=== PATIENT | female | born 1965 | race Caucasian/White ===

== ENCOUNTER 2019-04-04 17:10 | Emergency (ER) | payer BC, OTHER ==
[2019-04-04] MEDS ORDERED: Acetaminophen/HYDROcodone 325-10 MG Tab PO ONE (21:31)
--- NOTE | 2019-04-04 21:37 | EDM.PDOC ---
ED HPI GENERAL MEDICAL PROBLEM - General Chief Complaint: Lower Extremity Injury/Pain Stated Complaint: INJURED RT FOOT AT WORK [id number] Time Seen by Provider: 04/04/19 21:32 Source of Information: Reports: Patient History Limitations: Reports: No Limitations - History of Present Illness INITIAL COMMENTS - FREE TEXT/NARRATIVE: been walking alot today during school field trip and developed right foot pain. denies trauma Right Anterior Foot Pain Score (Numeric/FACES): 5 - Related Data Allergies Allergy/AdvReac Type Severity Reaction Status Date / Time No Known Allergies Allergy Verified 04/04/19 18:14 Home Meds: Home Meds . [No Known Home Meds] 04/04/19 [History] Past Medical History - Past Surgical History Musculoskeletal Surgical History: Reports: Arthroscopic Knee, Other (See Below) Other Musculoskeletal Surgeries/Procedures:: hx of surgery to bilateral thumbs, hx of surgery to back for herniated disc. Social & Family History - Family History Family Medical History: Noncontributory - Tobacco Use Smoking Status *Q: Never Smoker Second Hand Smoke Exposure: No - Caffeine Use Caffeine Use: Reports: Coffee - Recreational Drug Use Recreational Drug Use: No Review of Systems - Review of Systems Review Of Systems: ROS reveals no pertinent complaints other than HPI. 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 edge, no gross D/D, NV wnl , gait limited to pain) Neurological: Alert, Oriented, Normal Cognition, No Motor/Sensory Deficits Psychiatric: Normal Affect, Normal Mood Skin Exam: Warm, Dry, Normal Color Lymphatic: No Adenopathy Course - Vital Signs Last Recorded V/S: Last Vital Signs Temp 36.6 C 04/04/19 18:10 Pulse 84 04/04/19 18:10 Resp 14 04/04/19 18:10 BP 148/69 H 04/04/19 18:10 Pulse Ox 100 04/04/19 18:10 - Orders/Labs/Meds Orders: Active Orders 24 hr Category Date Time Status Acetaminophen/HYDROcodone [Ackley 325-10 MG] Med 04/04/19 21:31 Once 1 tab PO ONETIME ONE Medication Orders Hydrocodone Bitart/Acetaminophen (Ackley 325-10 Mg) 1 tab PO ONETIME ONE Stop: 04/04/19 21:32 Meds: Medications Generic Name Dose Route Start Last Admin Trade Name Jacob PRN Reason Stop Dose Admin Hydrocodone Bitart/Acetaminophen 1 tab 04/04/19 21:31 Ackley 325-10 Mg PO 04/04/19 21:32 ONETIME ONE Departure - Departure Time of Disposition: 21:34 Disposition: Home, Self-Care 01 Condition: Good Clinical Impression: Osteoarthritis of foot, right Qualifiers: Osteoarthritis type: unspecified Qualified Code(s): M19.071 - Primary osteoarthritis, right ankle and foot - Discharge Information Instructions: What You Need to Know About Osteoarthritis Additional Instructions: 1) elevate foot as much as possible next 48 hours 2) try ice or heat to sore areas 3) use crutches 4) see clinic Sunday for MRI SCAN - My Orders Last 24 Hours: My Active Orders 04/04/19 21:31 Acetaminophen/HYDROcodone [Ackley 325-10 MG] 1 tab PO ONETIME ONE - Assessment/Plan Last 24 Hours: My Active Orders 04/04/19 21:31 Acetaminophen/HYDROcodone [Ackley 325-10 MG] 1 tab PO ONETIME ONE
== END 2019-04-04 21:52 | disposition home or self-care (01) ==
LOC: DL.ED 17:10
DX: M19.071 Primary osteoarthritis, right ankle and foot (principal)
CPT/HCPCS: 73630; 99283; A9270

== ENCOUNTER 2020-05-13 07:58 | Day surgery (SDC) | payer BC ==
[~2020-05-13 07:58] MED LIST: Lactated Ringers 1,000 ML IV SCH; Sodium Chloride 0.9% 10 ML Syringe FLUSH PRN; ceFAZolin 1 GM in Premix Bag 1 BAG IV ONE
[2020-05-13] MEDS ORDERED: Midazolam 1 MG/ML 2 ML SDV IV ONE (07:59)
[2020-05-13] MEDS ORDERED: Propofol 200 MG/20 ML SDV IV ONE (07:59)
[2020-05-13] MEDS ORDERED: Dexamethasone 4 MG/ML SDV IV ONE (07:59)
[2020-05-13] MEDS ORDERED: Ondansetron 4 MG/2 ML SDV IV ONE (07:59)
[2020-05-13] MEDS ORDERED: Ketorolac 30 MG/ML SDV IVPUSH ONE (07:59)
[2020-05-13] MEDS ORDERED: Lidocaine 1% 30 ML SDV INJECT ONE ×3 (07:59→12:33)
[2020-05-13] MEDS ORDERED: Bupivacaine 0.5% 30 ML SDV INJECT ONE ×3 (07:59→12:33)
[2020-05-13] MEDS ORDERED: fentaNYL 100 MCG/2 ML SDV IV ONE (07:59)
[2020-05-13] MEDS ORDERED: Sodium Chloride 0.9% 10 ML Syringe FLUSH PRN (08:00)
[2020-05-13] MEDS: Lactated Ringers 1,000 ML IV SCH ×2 (08:35→09:53)
[2020-05-13] MEDS ORDERED: Lidocaine 1% 30 ML SDV ONE (09:44)
[2020-05-13] MEDS ORDERED: Bupivacaine 0.5% 30 ML SDV ONE (09:44)
[2020-05-13] MEDS ORDERED: Betamethasone Acetate/Betamethasone Sod Phosphate 30 MG/5 ML MDV ONE (12:26)
[2020-05-13] MEDS ORDERED: Betamethasone Acetate/Betamethasone Sod Phosphate 30 MG/5 ML MDV IM ONE (12:30)
[2020-05-13] MEDS ORDERED: Acetaminophen/oxyCODONE 325-5 MG Tab PO PRN (12:56)
--- NOTE | 2020-05-13 12:58 | PCM.OPNOTE ---
- General Post-Op/Procedure Note Date of Surgery/Procedure: 05/13/20 Operative Procedure(s): left ankle arthroscopy with debridement and lateral ankle stabilization procedure with bone anchor. Pre Op Diagnosis: left chronic ankle instability with pain Post-Op Diagnosis: radha Anesthesia Technique: General LMA Primary Surgeon: Joya Washington Anesthesia Provider: Ermias Ramirez EBL in mLs: 5 Complications: none Condition: Good Free Text/Narrative:: Intake & Output 05/12/20 05/13/20 05/13/20 22:59 06:59 14:59 Intake Total 1000 Balance 1000 Pt tolerated procedure well and was transported to recovery with vascular status intact to left LE. Well padded L&U splint applied with foot in eversion. christiano 3.5 anchor placed at fibula
--- NOTE | 2020-05-14 15:26 | OR ---
DATE: 05/13/2020 PREOPERATIVE DIAGNOSIS: Left ankle pain with lateral ankle instability. POSTOPERATIVE DIAGNOSIS: Left ankle pain with lateral ankle instability. PROCEDURES PERFORMED: 1. Left ankle arthroscopy with debridement. 2. Left ankle lateral ankle stabilization procedure with bone anchor. ANESTHESIA: General LMA with preoperative local block of 10 mL of 1:1 mixture of 1% lidocaine plain and 0.5% Marcaine plain. TOURNIQUET TIME: 92 minutes, pneumatic thigh tourniquet. ESTIMATED BLOOD LOSS: Minimal. SPECIMEN: None. COMPLICATIONS: None. INDICATIONS: Nitza is a 55-year-old female who presents for chronic ankle instability. I have seen her several times in the past, and we have tried physical therapy as well as ankle bracing with no relief. Her ankles have felt very unstable for a few years now, they actually even pop out of place at times, especially on the left side. She states now it seems to be getting harder to get the ankles to pop back into place once they are out. She has to be careful whenever she is walking on any type of uneven ground as she twists that ankle very often. X-rays of the left ankle reveal small bone chip at the dorsal aspect of the ankle joint, anterior tibia. On stress views of the ankle, she had a significant talar tilt and anterior drawer. The patient voiced good understanding of the proposed procedure and possible complications, elects to have surgery at this time. DESCRIPTION OF PROCEDURE: The patient was taken to the operating room lying in supine position. After adequate anesthesia induction as described above, the left foot and ankle were prepped and draped in usual sterile fashion. A pneumatic thigh tourniquet was inflated to 225 mmHg. Attention was first directed to the dorsal aspect of the left ankle where the dorsal cutaneous nerve was marked out on the lateral aspect and the saphenous was on the medial. A small stab incision was made at the medial ankle just medial to the anterior tibial tendon, being careful to avoid the saphenous neurovascular bundle. The ankle joint capsule was entered with a hemostat and the 2.7 ankle scope was placed into the ankle. The ankle was visualized and was noted to have some chondromalacia forming. I was able to see that bone chip and there were actually 2 bone chips in this area at the anterior tibia. A small stab incision was made at the lateral ankle just lateral to the tendon to avoid the cutaneous nerve, the debrider was then placed into the ankle joint, and I was able to debride around the bone chips and was able to completely remove the bone chips with a grabber. The debrider was used to remove the synovitis that was noted at the anterior aspect of the ankle, there was also some scar tissue at the lateral ankle gutter that was removed. Otherwise, the ankle joint, talar dome, and tibial plafond appeared healthy in appearance without any osteochondral lesions. Syndesmosis appeared stable. Arthroscope was then removed from the ankle as well as the debrider. The area was closed with nylon to the incision sites. Attention was then directed to the lateral ankle where a curvilinear incision was made just distal to the distal aspect of the fibula. Sharp and blunt dissections were performed down to the level of the ankle joint capsule in this area. The ankle capsule was excised all the way to the ankle, being careful to avoid the peroneal tendons. There was noted really to be no anterior tibiofibular ligament at this area. The periosteum was lifted off the distal fibula and a rongeur and curette were used to get down to good bleeding bone at the distal fibula in order for the soft tissues to reattach. A [place] 3.5 bone anchor was placed at the distal fibula and fluoroscopy was used to verify proper positioning of this anchor. Decided to not enter the joint or the peroneal groove. The sutures from the anchor were then used to secure the ankle capsule as well as the ligament remnants back down to the fibula with the foot held in an everted dorsiflexed position. The suture was then again used at the extensor retinaculum to augment the repair and the extensor retinaculum was also sutured down to the distal fibula with the foot in the everted position. Then, a final suture was used to the periosteum of the distal fibula to secure that down in a [id number] fashion over the repair with the foot held in an everted position. The ankle was tested and was noted to be very stable with talar tilt and anterior drawer. There was also good fluid range of motion of the ankle joint. The area was then irrigated with copious amounts of sterile saline. Deep closure was completed with 3-0 Vicryl and skin closure was completed with 4- 0 nylon. The area was dressed with Xeroform to the incision sites, fluffs, Webril, and a well-padded L and U splint with the foot in a slightly everted neutral position. The patient tolerated anesthesia well and was transferred to recovery with vital signs stable and vascular status intact as noted by immediate hyperemia to all digits upon deflation of the thigh tourniquet. The patient was then discharged home when she met hospital discharge requirements. [facility] /[id number]
== END 2020-05-13 15:00 | disposition home or self-care (01) ==
LOC: DL.SDS 07:58
PROVIDERS: ATTEND Podiatrist
DX: M25.572 Pain in left ankle and joints of left foot (principal); M25.372 Other instability, left ankle; M94.272 Chondromalacia, left ankle and joints of left foot; M65.9 Synovitis and tenosynovitis, unspecified; F32.9 Major depressive disorder, single episode, unspecified; E78.5 Hyperlipidemia, unspecified; E03.9 Hypothyroidism, unspecified; I49.8 Other specified cardiac arrhythmias; Z79.899 Other long term (current) drug therapy
CPT/HCPCS: 27698; 29897; C1713; J0690; J0702; J1100; J1885; J2001; J2250; J2405; J2704; J3010; J3490; J7120

== ENCOUNTER 2020-12-17 05:22 | Day surgery (SDC) | payer BC ==
[2020-12-17] MEDS ORDERED: fentaNYL 100 MCG/2 ML SDV IV ONE ×7 (05:23→07:00)
[2020-12-17] MEDS ORDERED: Midazolam 1 MG/ML 2 ML SDV IV ONE ×7 (05:23→06:47)
[2020-12-17] MEDS ORDERED: Dextrose 5%-0.45% NaCl 1,000 ML IV SCH (05:30)
[2020-12-17] MEDS ORDERED: Midazolam 1 MG/ML 2 ML SDV ONE (06:13)
[2020-12-17] MEDS ORDERED: fentaNYL 100 MCG/2 ML SDV ONE (06:14)
--- NOTE | 2020-12-17 09:34 | OR ---
DATE: 12/17/2020 PROCEDURE: Total colonoscopy. INSTRUMENT USED: PCF-H190DL Olympus video colonoscope. PREMEDICATIONS: Fentanyl 200 mcg intravenous, Versed 4 mg intravenous, nasal O2 cannula. The procedure was done under pulse oximetry, BP recording, and library monitor. INDICATION: Patient with longstanding constipation, more pronounced recently with abdominal pain unexplained. Colonoscopic examination is done for detection of any polypoid lesions and removal, endoscopic hemostasis therapy if needed. DESCRIPTION OF PROCEDURE: Initial rectal exam showed external hemorrhoidal tags. Rigid anoscopy was normal. The colonoscope was passed with ease. Numerous scattered diverticula were noted more so in the distal left colon along with deformity. The scope was passed with relative ease up to the ileocecal area. Photographs were taken of the normal-appearing cecum, identified by double-bulged ileocecal folds. The colon was found to be tortuous and redundant, the exam a bit prolonged. No bleeding was noted from any of the visualized areas at the commencement of the examination. The bowel preparation was found to be adequate, Golden scale 3 in all the regions, total score 6. No stricture. No vascular ectasia. No large isolated ulcerations seen. No evidence of diffuse inflammatory bowel disease in the form of friability, contact bleeding, or ulcerations. No polyp or tumor mass identified. Probing the proximal sides of folds and flexures using adequate distention and clearing up the stool material, withdrawal of the scope was made. Cecum to rectum time over 6 minutes. No bleeding was noted from any of the visualized areas at the completion of examination. IMPRESSION: 1. External hemorrhoids. 2. Diverticulosis. The patient tolerated the procedure well. [facility] /[id number]
== END 2020-12-17 09:12 | disposition home or self-care (01) ==
LOC: DL.ENDO 05:22
PROVIDERS: ATTEND Internal Medicine Gastroenterology
DX: K57.30 Diverticulosis of large intestine without perforation or abscess without bleeding (principal); K59.00 Constipation, unspecified; K64.4 Residual hemorrhoidal skin tags; Z98.890 Other specified postprocedural states
CPT/HCPCS: 45378; J2250; J3010; J7042